=== PATIENT | female | born 1985 | race Caucasian/White ===

== ENCOUNTER → 2017-09-17 | Outpatient (CLI) | payer OTHER ==
[~2017-09-17] VITALS: Ht 162.6 cm; Wt 111.8 kg
[~2017-09-17] MED LIST: APIX5TAB PO
[2017-09-17 18:05] LABS: MICROSCOPIC NOT IND
[2017-09-17 18:11] LABS: BASOPHILS # (AUTO) 0.01 x10^3/uL (0-0.1); BASOPHILS % (AUTO) 0 % (0-1); EOSINOPHILS # (AUTO) 0.11 x10^3/uL (0-0.4); EOSINOPHILS % (AUTO) 1 % (1-7); LYMPHOCYTES # (AUTO) 2.02 x10^3/uL (1-3.4); LYMPHOCYTES % (AUTO) 18 % (22-44); MD NO; MEAN CORPUSCULAR HEMOGLOBIN 30.1 pg (27.0-34.8); MEAN CORPUSCULAR HGB CONC 33.2 g/dL (32.4-35.8); MEAN CORPUSCULAR VOLUME 90.6 fL (80-100); MONOCYTES # (AUTO) 0.66 x10^3/uL (0.2-0.8); MONOCYTES % (AUTO) 6 % (2-9); NEUTROPHILS # (AUTO) 8.57 x10^3/uL (1.8-6.8); NEUTROPHILS % (AUTO) 75 % (42-75); PLATELET COUNT 238 x10^3/uL (130-400); RED BLOOD COUNT 3.96 x10^6/uL (3.82-5.3); RED CELL DISTRIBUTION WIDTH 14.9 % (9.6-15.2)
[2017-09-17 18:21] LABS: ALANINE AMINOTRANSFERASE 13 U/L (12-78); ALBUMIN 2.7 g/dL (3.4-5.0); ANION GAP 8 mmol/L (5-15); CALCIUM 8.9 mg/dL (8.5-10.1); CHLORIDE 110 mmol/L (98-107); CREATININE 0.54 mg/dL (0.55-1.02)
[2017-09-17 18:24] LABS: ALKALINE PHOSPHATASE 125 U/L (45-117); BILIRUBIN,TOTAL 0.5 mg/dL (0.2-1.0); TOTAL PROTEIN 7.1 g/dL (6.4-8.2)
[2017-09-17 18:31] LABS: BILIRUBIN, DIRECT < 0.1 mg/dL (0.1-0.2)
[2017-09-17 19:08] LABS: CREATININE,URINE RANDOM 53.9 mg/dL
== END ==
LOC: LDOP 16:56
PROVIDERS: ATTEND Obstetrics & Gynecology
DX: R10.9 Unspecified abdominal pain (principal); O88.813 Other embolism in pregnancy, third trimester; Z3A.37 37 weeks gestation of pregnancy
CPT/HCPCS: 36415; 59025; 80053; 81003; 82248; 82570; 84156; 84550; 85025; 99211; G0463

== ENCOUNTER 2017-09-19 09:27 | Outpatient (CLI) | payer OTHER ==
[2017-09-19 11:09] LABS: T4 (THYROXINE) 16.2 mcg/dL (4.8-13.9)
== END 2017-09-19 11:50 | disposition home or self-care (01) ==
LOC: LDOP 09:27
PROVIDERS: ATTEND Obstetrics & Gynecology
DX: O99.413 Diseases of the circulatory system complicating pregnancy, third trimester (principal); R00.0 Tachycardia, unspecified; Z3A.00 Weeks of gestation of pregnancy not specified
CPT/HCPCS: 36415; 59025; 84436; 84443; 84481; 93005; 99211; G0463

== ENCOUNTER 2017-09-23 10:19 | Inpatient (IN) | payer OTHER ==
[~2017-09-23] VITALS: Ht 162.6 cm; Wt 112.0 kg
[2017-09-23] MEDS ORDERED: OXYTOCIN 30U/ 0.9% NaCL 500ML 500 ML IV ONE (23:08)
[2017-09-23] MEDS ORDERED: OXYTOCIN 30U/ 0.9% NaCL 500ML 500 ML IV PRN (23:08)
[2017-09-23] MEDS ORDERED: D5%-LACTATED RINGERS 1,000 ML IV SCH (23:08)
[2017-09-23] MEDS ORDERED: LIDOCAINE 1%, 20ML ONE (23:09)
[2017-09-23] MEDS ORDERED: MISOPROSTOL 200 MCG TABLET ONE (23:09)
[2017-09-23] MEDS ORDERED: FENTANYL PF 100 MCG/2ML IVPush PRN (23:30)
[2017-09-23] MEDS ORDERED: TERBUTALINE 1 MG/ML, 1ML IVPush PRN (23:30)
[2017-09-23] MEDS ORDERED: ONDANSETRON 2MG/ML, 2ML IVPush PRN (23:30)
[2017-09-23] MEDS ORDERED: CALCIUM CARBONATE 500 MG TAB.CHEW PO PRN (23:30)
[2017-09-23] MEDS ORDERED: FENTANYL PF 100 MCG/2ML IV PRN (23:30)
[2017-09-23 23:34] LABS: BASOPHILS # (AUTO) 0.08 x10^3/uL (0-0.1); BASOPHILS % (AUTO) 1 % (0-1); EOSINOPHILS # (AUTO) 0.12 x10^3/uL (0-0.4); EOSINOPHILS % (AUTO) 1 % (1-7); LYMPHOCYTES # (AUTO) 2.12 x10^3/uL (1-3.4); LYMPHOCYTES % (AUTO) 16 % (22-44); MD NO; MEAN CORPUSCULAR HEMOGLOBIN 30.1 pg (27.0-34.8); MEAN CORPUSCULAR HGB CONC 33.6 g/dL (32.4-35.8); MEAN CORPUSCULAR VOLUME 89.6 fL (80-100); MEAN PLATELET VOLUME 7.9 fL (7.4-10.4); MONOCYTES # (AUTO) 0.75 x10^3/uL (0.2-0.8); MONOCYTES % (AUTO) 6 % (2-9); NEUTROPHILS # (AUTO) 10.42 x10^3/uL (1.8-6.8); NEUTROPHILS % (AUTO) 77 % (42-75); PLATELET COUNT 246 x10^3/uL (130-400); RED BLOOD COUNT 3.96 x10^6/uL (3.82-5.3); RED CELL DISTRIBUTION WIDTH 14.7 % (9.6-15.2)
[2017-09-23] MEDS: MISOPROSTOL 25 MCG TABLET VG PRN (23:45)
[2017-09-23] MEDS: LACTATED RINGERS 1,000 ML IV SCH (23:47)
[2017-09-24 00:06] VITALS: BP 119/75
[2017-09-24] MEDS: MISOPROSTOL 25 MCG TABLET VG PRN ×3 (04:21→16:50)
[2017-09-24] MEDS: LACTATED RINGERS 1,000 ML IV SCH (04:21)
[2017-09-24 06:32] LABS: INTERNATIONAL NORMALIZED RATIO 0.9 (0.93-1.1); PROTHROMBIN TIME 9.4 Seconds (9.6-11.5)
[2017-09-24] MEDS ORDERED: MISOPROSTOL 25 MCG TABLET ONE ×2 (09:16→16:33)
[2017-09-24] MEDS ORDERED: HEPARIN 5,000 UNITS/ML, 1ML SQ SCH (22:30)
== END 2017-09-24 23:05 | disposition home or self-care (01) | DRG 781 ==
LOC: LDIP 23:05
PROVIDERS: ADMIT Obstetrics & Gynecology; ATTEND Obstetrics & Gynecology
DX: O16.3 Unspecified maternal hypertension, third trimester (principal); O99.820 Streptococcus B carrier state complicating pregnancy; Z3A.38 38 weeks gestation of pregnancy; Z86.711 Personal history of pulmonary embolism; Z88.0 Allergy status to penicillin; Z88.8 Allergy status to other drugs, medicaments and biological substances
CPT/HCPCS: 36415; 85025; 85610; 85730; 86850; 86900; J1644; J7120

== ENCOUNTER 2017-09-28 12:19 | Inpatient (IN) | payer OTHER ==
[~2017-09-28] VITALS: Ht 162.6 cm; Wt 115.0 kg
[2017-09-28] MEDS ORDERED: OXYTOCIN 30U/ 0.9% NaCL 500ML 500 ML IV ONE (21:22)
[2017-09-28] MEDS ORDERED: D5%-LACTATED RINGERS 1,000 ML IV SCH (21:22)
[2017-09-28] MEDS ORDERED: OXYTOCIN 30U/ 0.9% NaCL 500ML 500 ML ONE (21:28)
[2017-09-28] MEDS ORDERED: MISOPROSTOL 200 MCG TABLET ONE (21:28)
[2017-09-28] MEDS ORDERED: NEWBORN KIT ONE (21:28)
[2017-09-28] MEDS ORDERED: FENTANYL PF 100 MCG/2ML IV PRN (21:30)
[2017-09-28] MEDS ORDERED: ONDANSETRON 2MG/ML, 2ML IVPush PRN (21:30)
[2017-09-28] MEDS ORDERED: FENTANYL PF 100 MCG/2ML IVPush PRN (21:30)
[2017-09-28] MEDS ORDERED: SODIUM CITRATE/CITRIC ACID 30 ML UDC PO PRN (21:30)
[2017-09-28] MEDS ORDERED: METOCLOPRAMIDE 5 MG/ML, 2ML IVPush PRN (21:30)
[2017-09-28] MEDS ORDERED: CALCIUM CARBONATE 500 MG TAB.CHEW PO PRN (21:30)
[2017-09-28] MEDS: LACTATED RINGERS 1,000 ML IV SCH (21:39)
[2017-09-28 21:51] LABS: BASOPHILS # (AUTO) 0.02 x10^3/uL (0-0.1); BASOPHILS % (AUTO) 0 % (0-1); EOSINOPHILS # (AUTO) 0.12 x10^3/uL (0-0.4); EOSINOPHILS % (AUTO) 1 % (1-7); LYMPHOCYTES # (AUTO) 2.27 x10^3/uL (1-3.4); LYMPHOCYTES % (AUTO) 17 % (22-44); MD NO; MEAN CORPUSCULAR HEMOGLOBIN 29.5 pg (27.0-34.8); MEAN CORPUSCULAR HGB CONC 33.3 g/dL (32.4-35.8); MEAN CORPUSCULAR VOLUME 88.7 fL (80-100); MONOCYTES # (AUTO) 0.73 x10^3/uL (0.2-0.8); MONOCYTES % (AUTO) 5 % (2-9); NEUTROPHILS # (AUTO) 10.61 x10^3/uL (1.8-6.8); NEUTROPHILS % (AUTO) 77 % (42-75); PLATELET COUNT 256 x10^3/uL (130-400); RED BLOOD COUNT 4.05 x10^6/uL (3.82-5.3)
[2017-09-28] MEDS ORDERED: MISOPROSTOL 25 MCG TABLET ONE (21:52)
[2017-09-28] MEDS: MISOPROSTOL 25 MCG TABLET VG PRN (22:00)
[2017-09-28 22:01] LABS: INTERNATIONAL NORMALIZED RATIO 0.91 (0.93-1.1); PROTHROMBIN TIME 9.4 Seconds (9.6-11.5)
[2017-09-29] MEDS ORDERED: LABE100T3 PO (01:03)
[2017-09-29] MEDS ORDERED: [UNRECOGNIZED DRUG - CODE] SQ (01:09)
[2017-09-29] MEDS ORDERED: MISOPROSTOL 25 MCG TABLET ONE (03:06)
[2017-09-29] MEDS: MISOPROSTOL 25 MCG TABLET VG PRN (03:22)
[2017-09-29] MEDS: LACTATED RINGERS 1,000 ML IV SCH ×5 (09:24→21:21)
[2017-09-29] MEDS ORDERED: OXYTOCIN 30U/ 0.9% NaCL 500ML 0 ML ONE (12:23)
[2017-09-29] MEDS ORDERED: OXYTOCIN 30U/ 0.9% NaCL 500ML 500 ML IV PRN (13:28)
[2017-09-29] MEDS ORDERED: FENTANYL PF 100 MCG/2ML ONE ×2 (19:15→19:45)
[2017-09-29] MEDS ORDERED: METOCLOPRAMIDE 5 MG/ML, 2ML ONE (19:20)
[2017-09-29] MEDS ORDERED: SODIUM CITRATE/CITRIC ACID 30 ML UDC ONE (19:20)
[2017-09-29] MEDS ORDERED: CLINDAMYCIN PMX 900MG/50ML 50 ML ONE (19:31)
[2017-09-29] MEDS ORDERED: KETOROLAC 30 MG/1 ML ONE (19:45)
[2017-09-29] MEDS ORDERED: LIDOCAINE 1%, 20ML ONE (19:45)
[2017-09-29] MEDS ORDERED: OXYTOCIN 10 UNITS/ML, 1ML ONE (19:45)
[2017-09-29] MEDS ORDERED: GLYCOPYRROLATE 0.2MG/1ML, 5ML ONE (19:45)
[2017-09-29] MEDS ORDERED: EPHEDRINE 50 MG/ML, 1ML ONE (19:45)
[2017-09-29] MEDS: OXYTOCIN 30U/ 0.9% NaCL 500ML 500 ML IV SCH (20:53)
[2017-09-29] MEDS ORDERED: METOCLOPRAMIDE 5 MG/ML, 2ML IV PRN (21:00)
[2017-09-29] MEDS ORDERED: MISOPROSTOL 200 MCG TABLET PR PRN (21:00)
[2017-09-29] MEDS ORDERED: morphine SULFATE 10 MG/ML, 1ML IV PRN (21:00)
[2017-09-29] MEDS ORDERED: LABETALOL 5MG/ML, 20ML IV PRN (21:00)
[2017-09-29] MEDS ORDERED: hydrALAzine 20 MG/ML, 1ML IV PRN (21:00)
[2017-09-29] MEDS ORDERED: BISACODYL 10 MG SUPP PR PRN (21:00)
[2017-09-29] MEDS ORDERED: CALCIUM CARBONATE 500 MG TAB.CHEW PO PRN (21:00)
[2017-09-29] MEDS ORDERED: GLYCERIN ADULT SUPP PR PRN (21:00)
[2017-09-29] MEDS ORDERED: CARBOPROST TROMETHAMINE 250 MCG/ML, 1ML IM PRN (21:00)
[2017-09-29] MEDS ORDERED: MEPERIDINE/PF 25MG/0.5ML IVPush PRN (21:00)
[2017-09-29] MEDS ORDERED: OXYcodone 5 MG/5 ML ORAL.SOL UDC PO PRN (21:00)
[2017-09-29] MEDS ORDERED: ONDANSETRON 2MG/ML, 2ML IVPush PRN (21:00)
[2017-09-29] MEDS ORDERED: FENTANYL PF 100 MCG/2ML IV PRN (21:00)
[2017-09-29] MEDS ORDERED: ONDANSETRON 2MG/ML, 2ML IV PRN (21:00)
[2017-09-29] MEDS ORDERED: DIPH,PERTUSS(ACELL),TET VAC/PF NC IM-VACC PRN (21:00)
[2017-09-29] MEDS ORDERED: MEASLES,MUMPS&RUBELLA VACC/PF 0.5 ML SQ-VACC PRN (21:00)
[2017-09-29] MEDS ORDERED: ACETAMINOPHEN 325 MG TABLET PO PRN ×2 (21:00)
[2017-09-29] MEDS ORDERED: EPHEDRINE 50 MG/ML, 1ML IVPush PRN (21:00)
[2017-09-29] MEDS ORDERED: METHYLERGONOVINE 0.2 MG/ML IM PRN (21:00)
[2017-09-29 22:30] VITALS: BP 119/76
[2017-09-29] MEDS: OXYcodone/APAP 5/325MG TABLET PO PRN ×2 (22:50→23:26)
[2017-09-30] MEDS: HEPARIN 5,000 UNITS/ML, 1ML SQ SCH ×2 (01:15→13:27)
[2017-09-30] MEDS: KETOROLAC 30 MG/1 ML IV SCH ×5 (03:00→20:50)
[2017-09-30 03:05] VITALS: BP 106/68
[2017-09-30] MEDS: OXYcodone/APAP 5/325MG TABLET PO PRN ×4 (03:06→19:04)
[2017-09-30] MEDS: LACTATED RINGERS 1,000 ML IV SCH ×5 (04:53→20:53)
[2017-09-30 05:45] VITALS: BP 99/64
[2017-09-30 06:00] LABS: BASOPHILS # (AUTO) 0.03 x10^3/uL (0-0.1); BASOPHILS % (AUTO) 0 % (0-1); EOSINOPHILS # (AUTO) 0.03 x10^3/uL (0-0.4); EOSINOPHILS % (AUTO) 0 % (1-7); LYMPHOCYTES # (AUTO) 2.19 x10^3/uL (1-3.4); LYMPHOCYTES % (AUTO) 17 % (22-44); MD NO; MEAN CORPUSCULAR HGB CONC 33.2 g/dL (32.4-35.8); MEAN CORPUSCULAR VOLUME 90.3 fL (80-100); MEAN PLATELET VOLUME 8.2 fL (7.4-10.4); MONOCYTES # (AUTO) 0.83 x10^3/uL (0.2-0.8); MONOCYTES % (AUTO) 6 % (2-9); NEUTROPHILS # (AUTO) 10.18 x10^3/uL (1.8-6.8); NEUTROPHILS % (AUTO) 77 % (42-75); PLATELET COUNT 210 x10^3/uL (130-400); RED BLOOD COUNT 3.83 x10^6/uL (3.82-5.3); RED CELL DISTRIBUTION WIDTH 14.4 % (9.6-15.2)
[2017-09-30] MEDS: OXYTOCIN 30U/ 0.9% NaCL 500ML 500 ML IV SCH ×2 (07:29→16:47)
[2017-09-30 07:55] VITALS: BP 110/64
[2017-09-30] MEDS: PRENATAL VIT/IRON/FA 1 EACH TABLET PO SCH (07:55)
[2017-09-30] MEDS: DOCUSATE 100 MG CAPSULE PO PRN ×2 (07:56→19:04)
[2017-09-30 11:45] VITALS: BP 114/71
[2017-09-30 16:10] VITALS: BP 106/71
[2017-09-30 20:07] VITALS: BP 114/77
[2017-09-30] MEDS: OXYcodone/APAP 10/325MG TABLET PO PRN (23:39)
[2017-10-01] MEDS: HEPARIN 5,000 UNITS/ML, 1ML SQ SCH ×2 (01:01→13:35)
[2017-10-01] MEDS: LACTATED RINGERS 1,000 ML IV SCH ×6 (02:53→22:53)
[2017-10-01] MEDS: OXYTOCIN 30U/ 0.9% NaCL 500ML 500 ML IV SCH ×3 (02:53→22:53)
[2017-10-01] MEDS: OXYcodone/APAP 10/325MG TABLET PO PRN ×5 (03:36→21:48)
[2017-10-01] MEDS: KETOROLAC 30 MG/1 ML IV SCH ×3 (03:36→16:09)
[2017-10-01 07:24] VITALS: BP 106/65
[2017-10-01] MEDS: DOCUSATE 100 MG CAPSULE PO PRN ×2 (08:24→21:48)
[2017-10-01] MEDS: PRENATAL VIT/IRON/FA 1 EACH TABLET PO SCH (08:24)
[2017-10-01 19:15] VITALS: BP 118/80
[2017-10-01] MEDS: SIMETHICONE 80 MG CHEW TAB PO PRN (21:51)
[2017-10-02] MEDS: IBUPROFEN 600 MG TABLET PO PRN ×3 (00:35→13:03)
[2017-10-02] MEDS: HEPARIN 5,000 UNITS/ML, 1ML SQ SCH ×2 (00:37→13:03)
[2017-10-02] MEDS: OXYcodone/APAP 10/325MG TABLET PO PRN ×4 (02:07→16:34)
[2017-10-02] MEDS: LACTATED RINGERS 1,000 ML IV SCH (04:53)
[2017-10-02] MEDS: PRENATAL VIT/IRON/FA 1 EACH TABLET PO SCH (07:56)
[2017-10-02] MEDS: SIMETHICONE 80 MG CHEW TAB PO PRN (07:56)
[2017-10-02] MEDS: DOCUSATE 100 MG CAPSULE PO PRN (07:56)
[2017-10-02 08:00] VITALS: BP 118/83
[2017-10-02] MEDS ORDERED: IBUP-1222 PO (13:48)
[2017-10-02] MEDS ORDERED: OXYC-302 PO (13:49)
== END 2017-10-02 17:54 | disposition home or self-care (01) | DRG 765 ==
LOC: LDIP 21:17 → 2NW 09-29 22:15
PROVIDERS: ADMIT Obstetrics & Gynecology; ATTEND Obstetrics & Gynecology
PROC: 10D00Z1 Extraction of Products of Conception, Low, Open Approach (ICD-10-PCS; principal; 2017-09-29)
DX: O76 Abnormality in fetal heart rate and rhythm complicating labor and delivery (principal); O10.92 Unspecified pre-existing hypertension complicating childbirth; O77.9 Labor and delivery complicated by fetal stress, unspecified; Z37.0 Single live birth; Z3A.38 38 weeks gestation of pregnancy; Z86.711 Personal history of pulmonary embolism; Z88.0 Allergy status to penicillin; Z88.1 Allergy status to other antibiotic agents
CPT/HCPCS: 36415; 82803; 85025; 85610; 85730; 86850; 86900; J1644; J1885; J3010; J3490; J2590; J2765; J7120